=== PATIENT | female | born 1950 | race Caucasian/White ===

== ENCOUNTER 2017-08-05 08:29 | Inpatient (IN) | payer OTHER ==
[~2017-08-05] VITALS: Ht 154.9 cm; Wt 52.6 kg
[2017-08-05] MEDS ORDERED: CELEBREX200MG (08:39)
[2017-08-07] MEDS ORDERED: ULTRACET PO (12:00)
[2017-08-07] MEDS ORDERED: PROTONIX40 MG PO (12:00)
[2017-08-07] MEDS ORDERED: LEVAQUIN500 MG PO (12:00)
== END 2017-08-07 13:05 | disposition home or self-care (01) | DRG 343 ==
LOC: ER 08:29 → O/R 13:23 → SURH 17:14
PROVIDERS: Surgery
PROC: BW21Y0Z Computerized Tomography (CT Scan) of Abdomen and Pelvis using Other Contrast, Unenhanced and Enhanced (ICD-10-PCS; 2017-08-05)
PROC: 0DTJ0ZZ Resection of Appendix, Open Approach (ICD-10-PCS; principal; 2017-08-05 15:00)
DX: K35.89 Other acute appendicitis (principal); M06.89 Other specified rheumatoid arthritis, multiple sites

== ENCOUNTER 2018-10-13 07:57 | Outpatient (CLI) | payer OTHER ==
[~2018-10-13 07:57] MED LIST: CELEBREX200MG; LEVAQUIN500 MG PO; PROTONIX40 MG PO; ULTRACET PO
== END 2018-10-13 08:21 | disposition home or self-care (01) ==
LOC: TOM 07:57
DX: Q41.9 Congenital absence, atresia and stenosis of small intestine, part unspecified (principal); R10.84 Generalized abdominal pain

== ENCOUNTER 2022-08-22 09:15 | Emergency (ER) | payer OTHER ==
[~2022-08-22] VITALS: Ht 154.9 cm; Wt 52.2 kg
[2022-08-22] MEDS ORDERED: METOPROLOL SUCC25 MG PO (09:25)
[2022-08-22] MEDS ORDERED: ST. JOSEPH ASPI81 M2 PO (09:25)
[2022-08-22] MEDS ORDERED: METAXALONE400 MG PO (11:35)
[2022-08-22] MEDS ORDERED: TYLENOL ARTHRI650 MG PO (11:35)
== END 2022-08-22 11:38 | disposition home or self-care (01) ==
LOC: ER 09:15
DX: M54.89 Other dorsalgia (principal); I10 Essential (primary) hypertension; Z88.8 Allergy status to other drugs, medicaments and biological substances

== ENCOUNTER 2022-08-29 17:20 | Emergency (ER) | payer OTHER ==
[~2022-08-29] VITALS: Ht 154.9 cm; Wt 52.2 kg
[~2022-08-29 17:20] MED LIST changes: +METAXALONE400 MG PO; +METOPROLOL SUCC25 MG PO; +ST. JOSEPH ASPI81 M2 PO; +TYLENOL ARTHRI650 MG PO
[2022-08-29] MEDS ORDERED: ORENCIA125 MG/1 M SQ (17:30)
== END 2022-08-29 19:16 | disposition home or self-care (01) ==
LOC: ER 17:20
DX: K29.70 Gastritis, unspecified, without bleeding (principal); Z91.041 Radiographic dye allergy status; Z88.6 Allergy status to analgesic agent

== ENCOUNTER 2024-06-28 07:43 | Outpatient (CLI) | payer OTHER ==
[~2024-06-28 07:43] MED LIST changes: +ORENCIA125 MG/1 M SQ
== END 2024-06-28 07:44 | disposition home or self-care (01) ==
LOC: SONOGRAMA 07:43
PROVIDERS: ATTEND Pathology Anatomic Pathology & Clinical Pathology
DX: D34 Benign neoplasm of thyroid gland (principal); E07.89 Other specified disorders of thyroid; E04.2 Nontoxic multinodular goiter